=== PATIENT | female | born 1955 | race Caucasian/White ===

== ENCOUNTER 2019-12-01 10:08 | Outpatient (CLI) | payer MEDICARE ==
[2019-12-01 10:35] LABS: INTERNATIONAL NORMALIZED RATIO 2.42 (0.93-1.1); PROTHROMBIN TIME 24.6 Seconds (9.6-11.5)
[2019-12-01 10:37] LABS: CREATININE 0.93 mg/dL (0.55-1.02)
== END 2019-12-01 23:59 | disposition home or self-care (01) ==
LOC: LAB 10:08
PROVIDERS: ATTEND Internal Medicine Endocrinology, Diabetes & Metabolism
DX: E55.9 Vitamin D deficiency, unspecified (principal); E87.6 Hypokalemia; E11.3593 Type 2 diabetes mellitus with proliferative diabetic retinopathy without macular edema, bilateral; E11.42 Type 2 diabetes mellitus with diabetic polyneuropathy; Z79.4 Long term (current) use of insulin; Z79.01 Long term (current) use of anticoagulants
CPT/HCPCS: 36415; 82306; 82565; 83036; 84132; 84520; 85610

== ENCOUNTER 2020-06-09 12:49 | Outpatient (CLI) | payer MEDICARE ==
[2020-06-09 13:38] LABS: INTERNATIONAL NORMALIZED RATIO 3.34 (0.93-1.1); PROTHROMBIN TIME 35.8 Seconds (9.6-11.5)
== END 2020-06-09 23:59 | disposition home or self-care (01) ==
LOC: LAB 12:49
PROVIDERS: ATTEND Family Medicine
DX: Z79.01 Long term (current) use of anticoagulants (principal)
CPT/HCPCS: 36415; 85610

== ENCOUNTER 2020-07-04 09:19 | Outpatient (CLI) | payer MEDICARE ==
[2020-07-04 09:42] LABS: INTERNATIONAL NORMALIZED RATIO 3.11 (0.93-1.1); PROTHROMBIN TIME 32.4 Seconds (9.6-11.5)
== END 2020-07-04 23:59 | disposition home or self-care (01) ==
LOC: LAB 09:19
PROVIDERS: ATTEND Family Medicine
DX: Z51.81 Encounter for therapeutic drug level monitoring (principal); Z79.01 Long term (current) use of anticoagulants
CPT/HCPCS: 36415; 85610

== ENCOUNTER 2020-07-14 18:02 | Emergency (ER) | payer MEDICARE ==
[~2020-07-14] VITALS: Ht 170.2 cm; Wt 135.0 kg
--- NOTE | 2020-07-14 18:32 | NUR ---
FIRST CONTACT WITH PT. PT C/O "CELLULITIS IN MY RIGHT LEG". PAIN TO R LEG FOR COUPLE WEEKS. REDNESS, SWELLING W/SEEPAGE WORSENING. PT'S AOX4. RESPS EVEN AND UNLABORED. 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 BP/SPO2 MONITORS IN PLACE. CALL LIGHT WITHIN REACH. PA STUDENT AT BEDSIDE EVALUTING AT THIS TIME.
--- NOTE | 2020-07-14 18:46 | NUR ---
bedside report from Amira RN, pt resting in [facility], waiting for ERP eval. TM.
--- NOTE | 2020-07-14 18:48 | NUR ---
REPORT GIVEN TO PENNIE WINKLER.
[2020-07-14] MEDS ORDERED: humalog SC (19:05)
[2020-07-14] MEDS ORDERED: warfarin PO (19:05)
[2020-07-14] MEDS ORDERED: losartan PO (19:05)
[2020-07-14] MEDS ORDERED: gabapentin PO (19:05)
[2020-07-14] MEDS ORDERED: WARF3TAB52 PO (19:05)
[2020-07-14] MEDS ORDERED: metformin PO (19:05)
[2020-07-14] MEDS ORDERED: LIRA0.6P INJ (19:05)
[2020-07-14 19:08] LABS: BASOPHILS # (AUTO) 0.05 x10^3/uL (0-0.1); BASOPHILS % (AUTO) 1 % (0-1); EOSINOPHILS # (AUTO) 0.22 x10^3/uL (0-0.4); EOSINOPHILS % (AUTO) 2 % (1-7); LYMPHOCYTES # (AUTO) 2.25 x10^3/uL (1-3.4); LYMPHOCYTES % (AUTO) 23 % (22-44); MD NO; MEAN CORPUSCULAR HEMOGLOBIN 29.5 pg (27.0-34.8); MEAN CORPUSCULAR HGB CONC 33.2 g/dL (32.4-35.8); MEAN CORPUSCULAR VOLUME 88.7 fL (80-100); MEAN PLATELET VOLUME 8.1 fL (7.4-10.4); MONOCYTES # (AUTO) 0.63 x10^3/uL (0.2-0.8); MONOCYTES % (AUTO) 6 % (2-9); NEUTROPHILS # (AUTO) 6.87 x10^3/uL (1.8-6.8); NEUTROPHILS % (AUTO) 69 % (42-75); PLATELET COUNT 338 x10^3/uL (130-400); RED BLOOD COUNT 4.17 x10^6/uL (3.82-5.3)
[2020-07-14] MEDS ORDERED: pravastatin PO (19:08)
[2020-07-14] MEDS ORDERED: TRIAMTERENE HCTZ PO (19:08)
[2020-07-14 19:18] LABS: ALBUMIN 3.2 g/dL (3.4-5.0); ANION GAP 8 mmol/L (5-15); CHLORIDE 102 mmol/L (98-107); CREATININE 1.26 mg/dL (0.55-1.02)
--- NOTE | 2020-07-14 19:45 | NUR ---
pt back from [place] via balj[facility], pt NAD, no change in condition, denies additional needs at this time. pt is a poor historian for medications. wctm. waiting for test results.
[2020-07-14 19:50] LABS: PROTHROMBIN TIME 52.3 Seconds (9.6-11.5)
[2020-07-14] MEDS ORDERED: CEPHALEXIN 500 MG CAPSULE ONE (20:51)
[2020-07-14] MEDS ORDERED: SULFAMETH./TRIMETHOPRIM DS 800MG/160MG TABLET ONE (20:51)
[2020-07-14 20:54] VITALS: BP 149/59
--- NOTE | 2020-07-14 20:54 | NUR ---
PT MEDICATED PER FRANCE CROWDER MD AT FOR EVAL AND POC. PT NAD, VSS, NO CHANGE IN CONDITION. WCTM. PT TO BE DC'D
[2020-07-14] MEDS ORDERED: SULFAMETH./TRIMETHOPRIM DS 800MG/160MG TABLET PO ONE (21:00)
[2020-07-14] MEDS ORDERED: CEPHALEXIN 500 MG CAPSULE PO ONE (21:00)
[2020-07-14] MEDS ORDERED: NEOSPORIN OINT. PKT 1 PACKET ONE ×2 (21:28→21:33)
== END 2020-07-14 21:50 | disposition home or self-care (01) ==
LOC: ED 18:32
DX: L03.115 Cellulitis of right lower limb (principal); I10 Essential (primary) hypertension; E11.9 Type 2 diabetes mellitus without complications; E78.5 Hyperlipidemia, unspecified; Z86.718 Personal history of other venous thrombosis and embolism
CPT/HCPCS: 36415; 80048; 82040; 85025; 85610; 99284

== ENCOUNTER → 2020-08-17 | Outpatient (CLI) | payer MEDICARE ==
[~2020-08-17] MED LIST: LIRA0.6P INJ; TRIAMTERENE HCTZ PO; WARF3TAB52 PO; gabapentin PO; humalog SC; losartan PO; metformin PO; pravastatin PO; warfarin PO
[2020-08-17 12:18] LABS: INTERNATIONAL NORMALIZED RATIO 3.37 (0.93-1.1); PROTHROMBIN TIME 35.1 Seconds (9.6-11.5)
== END | disposition home or self-care (01) ==
LOC: LAB 11:34
PROVIDERS: ATTEND Family Medicine
DX: Z51.81 Encounter for therapeutic drug level monitoring (principal); Z79.01 Long term (current) use of anticoagulants
CPT/HCPCS: 36415; 85610